=== PATIENT | male | born 1995 | race Caucasian/White ===

== ENCOUNTER 2017-07-16 17:42 | Emergency (ER) | payer OTHER ==
[2017-07-16 17:48] VITALS: BP 137/99; PULSE 89; TEMP 98.1; BMI 33.0
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
[2017-07-16] MEDS ORDERED: IBUPROFEN 400 MG TABLET (FP) PO ONE ×2 (18:11)
== END 2017-07-16 18:27 | disposition home or self-care (01) ==
LOC: FER 17:42
DX: S13.4XXA Sprain of ligaments of cervical spine, initial encounter (principal); V43.52XA Car driver injured in collision with other type car in traffic accident, initial encounter; Y92.410 Unspecified street and highway as the place of occurrence of the external cause
CPT/HCPCS: 99282-25

== ENCOUNTER 2020-08-22 16:33 | Emergency (ER) | payer OTHER | END 2020-08-22 17:37 | disposition home or self-care (01) | LOC: JVIRT 16:33 | DX: Z11.59 Encounter for screening for other viral diseases (principal) | CPT/HCPCS: 87070; 87880; C9803; Q3014-GT; U0003 ==

== ENCOUNTER 2021-03-22 18:45 | Emergency (ER) | payer OTHER ==
[2021-03-22 18:56] VITALS: BMI 33.0
[2021-03-22] MEDS ORDERED: ACETAMINOPHEN 1000 MG/100 ML VIAL (NON FORMULARY) IVPB ONE (19:00)
[2021-03-22] MEDS ORDERED: SODIUM CHLORIDE 1,000 ML IV STA (19:00)
[2021-03-22] MEDS ORDERED: ACETAMINOPHEN INJECTION 100 ML IVPB ONE (19:28)
[2021-03-22] MEDS ORDERED: DALBAVANCIN HCL 1,500 MG in DEXTROSE 5%-WATER - 500 ML IVPB ONE (19:29)
[2021-03-22 19:37] LABS: BASO % 0.5 % (0-2.0); EOS % 2.2 % (0-4.5); HEMATOCRIT 45.3 % (35.4-49); HEMOGLOBIN 15.4 GM/dl (11.7-16.9); LYMPH % 14.3 % (8-40); MCH 31.1 pg (25.7-33.7); MEAN CELL VOLUME 91.4 fl (80-96); MEAN PLT VOLUME 9.1 fl (7.5-11.1); MONO % 8.6 % (3.8-10.2); NEUT % 74.4 % (42.8-82.8); PLATELET COUNT 223 10^3/uL (134-434); RBC 4.95 M/mm3 (4.00-5.60); RDW 12.5 % (11.9-15.9); WHITE BLOOD COUNT 12.1 K/mm3 (4.0-10.8)
[2021-03-22 19:43] LABS: INR 1.04 (0.82-1.09); PROTHROMBIN TIME (PATIENT) 11.6 SEC (10.2-13.0)
[2021-03-22] MEDS ORDERED: DALBAVANCIN HCL 500 MG VIAL (RESTRICTED TO ID ONLY) IVPB ONE (19:44)
[2021-03-22 19:47] LABS: ALBUMIN 4.1 g/dl (3.4-5.0); ALK PHOS 76 U/L (45-117); ANION GAP 10 MMOL/L (8-16); BILIRUBIN,TOTAL 1.8 mg/dl (0.2-1); CALCIUM 8.6 mg/dl (8.5-10); CHLORIDE 99 mmol/L (98-107); CO2 26 mmol/L (21-32); GLUCOSE,RANDOM 91 mg/dl (74-106); SGOT/AST 40 U/L (15-37); SGPT/ALT 85 U/L (13-61); SODIUM 135 mmol/L (136-145); TOT PROT 7.1 g/dl (6.4-8.2)
[2021-03-22 20:09] LABS: URINE APPEARANCE CLEAR; URINE BILIRUBIN 1+ (NEGATIVE); URINE COLOR YELLOW; URINE GLUCOSE (UA) NEGATIVE (NEGATIVE)
[2021-03-22 20:10] LABS: URINE KETONE TRACE (NEGATIVE); URINE LEUK ESTERASE NEGATIVE (NEGATIVE); URINE NITRITE NEGATIVE (NEGATIVE); URINE PROTEIN 1+ (NEGATIVE); URINE UROBILINOGEN 0.2 (0.2-1.0)
[2021-03-22 20:11] LABS: URINE BACTERIA FEW /hpf (NEGATIVE); URINE WBC 0-2 (NEGATIVE)
[2021-03-22 20:23] VITALS: BP 153/102; PULSE 94; TEMP 100.6
== END 2021-03-22 21:55 | disposition home or self-care (01) ==
LOC: FER 18:45
PROC: 3E03329 Introduction of Other Anti-infective into Peripheral Vein, Percutaneous Approach (ICD-10-PCS; principal; 2021-03-22)
PROC: 3E033NZ Introduction of Analgesics, Hypnotics, Sedatives into Peripheral Vein, Percutaneous Approach (ICD-10-PCS; 2021-03-22)
PROC: 3E0337Z Introduction of Electrolytic and Water Balance Substance into Peripheral Vein, Percutaneous Approach (ICD-10-PCS; 2021-03-22)
DX: L03.211 Cellulitis of face (principal); I10 Essential (primary) hypertension
CPT/HCPCS: 36415; 71045-TC-FY; 80053; 80307; 81003; 82550; 84484; 85025; 85610; 87040; 87086; 87804; 93005; 99285-25; C9803; J0131; J0875; U0003; U0005